=== PATIENT | female | born 1935 | race Caucasian/White ===

== ENCOUNTER 2016-08-18 15:48 | Outpatient (CLI) | payer MEDICARE, OTHER ==
--- NOTE | 2016-08-18 16:29 | RAD ---
TWO VIEW CHEST 08/18/16 COMPARISON: 10/02/15 CLINICAL HISTORY: Bronchitis, COPD. FINDINGS: There is patchy opacity of the left lung base which has developed. The lungs are hyperinflated. Ther e is interstitial prominence. The cardiac silhouette is mildly enlarged and there is vascular calcif ication. No significant vascular congestion. IMPRESSION: 1. Patchy left basilar opacity has developed. This indicates pneumonia. Follow up resolution re commended. 2. COPD. 3. Mild enlargement of the cardiac silhouette. POS: [facility]
== END 2016-08-18 15:49 | disposition home or self-care (01) ==
LOC: MADRAD 15:48
PROVIDERS: ATTEND Obstetrics & Gynecology
DX: J44.9 Chronic obstructive pulmonary disease, unspecified (principal)
CPT/HCPCS: 71020

== ENCOUNTER 2016-08-24 14:02 | Emergency (ER) | payer MEDICARE, OTHER ==
[~2016-08-24 14:02] MED LIST: Sodium Chloride 0.9% 1,000 ML BAG ONE; Sodium Chloride 0.9% 100 ML BAG ONE
[2016-08-24 15:14] LABS: #Basophils 0.1 thou/uL (0.0-0.2); #Eosinphils 0.2 thou/uL (0.0-0.7); #Lymphocytes 2.6 thou/uL (1.20-3.40); #Monocytes 0.3 thou/uL (0.11-0.59); #Neutrophils 5.9 thou/uL (1.40-6.50); %Eosinophils 1.8 % (0.0-10.0); %Lymphocytes 28.6 % (21.0-51.0); %Monocytes 3.6 % (0.0-10.0); %Neutrophils 65.1 % (42.0-75.0); Mean Corpuscular HGB CONC 32.4 g/dL (32.0-36.0); Mean Corpuscular Hemoglobin 27.7 pg (27.0-31.0); Mean Corpuscular Volume 85.4 fl (81.0-99.0); Mean Platelet Volume 6.6 fL (7.4-10.4); Platelet Count 184 thou/uL (130-400); RBC Distribution Width 13.4 % (11.5-14.5); White Blood Cell (WBC) Count 9.1 thou/uL (4.8-10.8)
[2016-08-24 15:31] LABS: ALT (SGPT) 10 U/L (0-55); AST (SGOT) 14 U/L (5-34); Albumin 4.1 g/dL (3.4-4.8); Alkaline Phosphatase 89 U/L (40-150); Anion Gap 15 mmol/L (10-20); BUN (Urea Nitrogen) 19 mg/dL (9.8-20.1); Bilirubin, Total 1.1 mg/dL (0.2-1.2); Calc. Creatinine Clearance 0 mL/min (70-130); Carbon Dioxide 25 mmol/L (23-31); Chloride 99 mmol/L (98-107); Estimated GFR-MDRD 38; Globulin 2.7 g/dL (2.4-3.5); Glucose 95 mg/dL (83-110); Potassium 3.9 mmol/L (3.5-5.1); Protein, Total 6.8 g/dL (5.8-8.1); Sodium 135 mmol/L (136-145)
[2016-08-24 15:38] LABS: CKMB 1.1 ng/mL (0-6.6); Troponin I 0.013 ng/mL (< 0.028)
--- NOTE | 2016-08-24 16:01 | RAD ---
PORTABLE CHEST: HISTORY: Dyspnea. COMPARISON: 06/11/11 and 08/18/16. FINDINGS: Streaky left lower lobe atelectasis and/or infiltrate which was noted on 08/18/16 is again noted. Lungs otherwise remain clear and unchanged. No significant interval change. IMPRESSION: There continues to be streaky and patchy left lower lobe atelectasis/infiltrative change. POS: [facility]
[2016-08-24] MEDS ORDERED: Piperacillin/Tazobactam 3.375 GM VIAL ONE (16:24)
== END 2016-08-24 16:47 | disposition short-term general hospital (02) ==
LOC: MADERS 14:02
DX: J18.1 Lobar pneumonia, unspecified organism (principal); J44.1 Chronic obstructive pulmonary disease with (acute) exacerbation; N28.9 Disorder of kidney and ureter, unspecified; I10 Essential (primary) hypertension; Z79.82 Long term (current) use of aspirin; Z79.899 Other long term (current) drug therapy
CPT/HCPCS: 36415; 71010; 80053; 82553; 83880; 84484; 85025; 85379; 87040; 93005; 94640; 96361; 96365; J2543; J7050; J7620

== ENCOUNTER 2017-07-13 07:40 | Outpatient (CLI) | payer MEDICARE, BC, OTHER ==
--- NOTE | 2017-07-13 09:17 | ULT ---
RIGHT UPPER QUADRANT ULTRASOUND: Date: 07/13/17 HISTORY: Right upper quadrant pain for past 6 weeks, worse in last week. Pain gets worse after eating. FINDINGS: The liver demonstrates homogeneous echotexture without focal mass or intrahepatic ductal dilatation. No gallstones, gallbladder wall thickening, or pericholecystic fluid is seen. The common duct measure s 3.0 mm in diameter. The right kidney and visualized portions of the pancreas, aorta, and IVC are un remarkable. No free fluid is seen in Morison's pouch. IMPRESSION: 1. No evidence of cholelithiasis. 2. If there is concern for cholecystitis, further evaluation with HIDA scan would be helpful. POS: [facility]
== END 2017-07-13 07:41 | disposition home or self-care (01) ==
LOC: MADULT 07:40
PROVIDERS: ATTEND Obstetrics & Gynecology
DX: R10.13 Epigastric pain (principal)
CPT/HCPCS: 76705

== ENCOUNTER 2018-05-29 10:21 | Outpatient (CLI) | payer MEDICARE, OTHER ==
--- NOTE | 2018-05-29 12:52 | RAD ---
SACRUM AND COCCYX THREE VIEWS: History: Fall with sacrum and coccygeal pain. FINDINGS: The bones appear demineralized. I do not see any definite signs of a fracture of the sacrum or coccyx . However, given the degree of bony demineralization if there is a high clinical suspicion of fractur e then CT or MRI would be recommended. Probably CT as there as stent which may cause artifact. IMPRESSION: No evidence of fracture. POS: [facility]
== END 2018-05-29 10:22 | disposition home or self-care (01) ==
LOC: MADRAD 10:21
PROVIDERS: ATTEND Obstetrics & Gynecology
DX: M53.3 Sacrococcygeal disorders, not elsewhere classified (principal); R55 Syncope and collapse; Z91.81 History of falling
CPT/HCPCS: 72220